=== PATIENT | male | born 1950 | race Caucasian/White ===

== ENCOUNTER → 2022-01-16 | Outpatient (CLI) | payer MEDICARE ==
--- NOTE | 2022-01-16 13:07 | RAD ---
CT ABDOMEN+PELVIS WO History: Reason: GROSS HEMATURIA / Spl. Instructions: / History: Technique: Noncontrast examination of the abdomen and pelvis. Coronal and sagittal reconstructions we re performed. Exposure: One or more of the following individualized dose reduction techniques were utilized for thi s examination: 1. Automated exposure control 2. Adjustment of the mA and/or kV according to patient size 3. Use of iterative reconstruction technique. Comparison: None Findings: Lower chest: 5 mm right middle lobe pulmonary nodule (series 2 image 10). Lower lobe 6 mm right lower lobe pulmonary nodule (image 8). 6 mm right middle lobe pulmonary nodule (image 1). 5 mm left lower lobe pulmonary nodule pleural-based (image 8). Abdomen and pelvis: Left anterior hepatic hypodensities measures 0.9 cm and 1.3 cm. The spleen, adren al glands, pancreas and gallbladder are unremarkable. No biliary ductal dilatation. No renal calculus. No hydronephrosis. No ureteral or urinary bladder calculus. Irregular right financial reporting advisor ior urinary bladder mass measures 4.8 x 2.9 cm. The mass is overall heterogeneous with hypodense and hyperdense components Mild distention of the urinary bladder. Mild prostamegaly measures 4.6 x 4.7 cm . Normal appendix. No evidence of bowel obstruction. No pathologic lymphadenopathy. No ascites. Small f at-containing right inguinal hernia. Bones: Chronic moderate multilevel lumbar spondylosis. L3 compression fracture with retropulsion. Impression: 1. Irregular heterogeneous right posterior urinary bladder mass, concerning for malignancy with amy cent hemorrhage. Recommend direct visualization and biopsy. 2. Mild urinary bladder distention. 3. Several indeterminate pulmonary nodules. Recommend attention on follow-up examinations or 3 month follow-up. 4. Small left hepatic hypodensities, may represent cysts although indeterminate. Recommend attention on follow-up. Electronically signed by: Shaquille Blanchard DO (01/16/2022 1:05 PM) [id number]
== END ==
LOC: CT 11:08
PROVIDERS: ATTEND Family Medicine
DX: R31.0 Gross hematuria (principal); K40.90 Unilateral inguinal hernia, without obstruction or gangrene, not specified as recurrent; N32.89 Other specified disorders of bladder; R91.8 Other nonspecific abnormal finding of lung field; M47.816 Spondylosis without myelopathy or radiculopathy, lumbar region
CPT/HCPCS: 74176

== ENCOUNTER 2022-01-20 18:42 | Emergency (ER) | payer MEDICARE ==
[~2022-01-20] VITALS: Ht 195.6 cm; Wt 112.1 kg
--- NOTE | 2022-01-20 18:53 | PHYS DOC ---
Adult General [facility] HPI Patient is a 71-year-old male who presents with a chief complaint of catheter malfunction. States that he went to see his primary care physician last week because he had blood in his urine. States he was sent to and went to the emergency department, then saw the urologist and had a Vanessa catheter placed as he does have an unknown mass in his bladder. States he has an appointment in 2 days with the urologist at . States that he was making urine up until this morning. States he has had lots of fluid and feels like he has to urinate but nothing is coming out of his Vanessa catheter. Denies any headache, lightheadedness, chest pain or shortness of breath, abdominal pain, nausea, vomiting. Denies any diarrhea or blood in the stool. States he otherwise feels well except having feelings that he needs to urinate. Review of Systems Review of Systems Review of systems otherwise unremarkable except noted in HPI Physical Exam Physical Exam Constitutional: Well developed, well nourished, no acute distress, non-toxic appearance. [] HENT: Normocephalic, atraumatic, bilateral external ears normal, oropharynx moist, no oral exudates, nose normal. [] Eyes: PERRLA, EOMI, conjunctiva normal, no discharge. [] Neck: Normal range of motion, no tenderness, supple, no stridor. [] Cardiovascular:Heart rate regular rhythm, no murmur [] Lungs & Thorax: Bilateral breath sounds clear to auscultation [] Abdomen: Bowel sounds normal, soft, no tenderness, no masses, no pulsatile masses. : Normal circumcised penis with no signs of trauma, Vanessa catheter in place and not draining. Ultrasound of bladder shows urine. [] Skin: Warm, dry, no erythema, no rash. [] Back: No tenderness, no CVA tenderness. [] Extremities: No tenderness, no cyanosis, no clubbing, ROM intact, no edema. [] Neurologic: Alert and oriented X 3, normal motor function, normal sensory function, no focal deficits noted. [] Psychologic: Affect normal, judgement normal, mood normal. [] EKG EKG [] Radiology/Procedures Radiology/Procedures [] Heart Score C/O Chest Pain: No Risk Factors: Risk Factors: DM, Current or recent (<one month) smoker, HTN, HLP, family history of CAD, obesity. Risk Scores: Risk Factors: DM, Current or recent (<one month) smoker, HTN, HLP, family history of CAD, obesity. Course & Med Decision Making Course & Med Decision Making Patient is a 71-year-old male who presents with a chief complaint of Vanessa catheter malfunction Vital signs nonconcerning. Physical exam noted above. Urine in the bladder shown on ultrasound. Vanessa catheter replaced with urine output of about 1000 mL with obvious dark blood. Patient stated he feels much better after urinating. Vanessa catheter continues to drain without issue. Discussed findings with family. Gave strict return precautions to the ED. Advised to keep his appointment with his urologist day after tomorrow. Advised to follow-up with primary care physician as well. Patient grateful, verbalized understanding and agreed with plan of discharge. [] Dragon Disclaimer Dragon Disclaimer This electronic medical record was generated, in whole or in part, using a voice recognition dictation system. Departure Departure: Impression: Primary Impression: Malfunction of indwelling urinary catheter Disposition: HOME / SELF CARE / HOMELESS Condition: STABLE Referrals: ALTA CM MD (PCP) Patient Instructions: Vanessa Catheter Care, Adult Additional Instructions: You for coming into the emergency department tonight and allowing us to take care of you. Please read the attached information carefully go over things we discussed. Please be sure to drink plenty of fluids to promote good urine output. Please keep your appointment in 2 days with the urologist at . Please come back to the emergency department immediately with any of the new or concerning symptoms as we discussed. VIKRAM GROSSMAN MD January 20, 2022 18:53
[2022-01-20] MEDS ORDERED: LIDOCAINE 2% JELLY 6ML IN APPLICATOR. ONE (19:11)
[2022-01-20] MEDS ORDERED: CEPHALEXIN 250 MG CAPSULE PO ONE (19:45)
[2022-01-20 20:02] LABS: CLARITY,URINE TURBID; COLOR,URINE BROWN
[2022-01-20 20:03] LABS: BACTERIA,URINE 0 /HPF (0-FEW); RBC,URINE TNTC /HPF (0-2); WBC,URINE OCC /HPF (0-4)
== END 2022-01-20 20:30 | disposition home or self-care (01) ==
LOC: ER 18:42
DX: T83.091A Other mechanical complication of indwelling urethral catheter, initial encounter (principal); R31.9 Hematuria, unspecified
CPT/HCPCS: 51702; 81001; 99284

== ENCOUNTER 2022-01-21 06:15 | Emergency (ER) | payer MEDICARE, OTHER ==
[~2022-01-21] VITALS: Ht 195.6 cm; Wt 112.1 kg
--- NOTE | 2022-01-21 06:29 | PHYS DOC ---
Past History Additional Past Medical Histor: mass on bladder Past Surgical History: Tonsillectomy General Adult HPI: HPI: Patient is a 71-year-old male here with report of concern for decreased urine output in his Vanessa leg bag. He was seen here last night, less than 12 hours ago for urinary retention. A few days prior to that he was seen in the ER at [facility], he had a Vanessa placed, the Vanessa quit draining so he presented to this ER, his Vanessa was changed without difficulty, about 1200 mL of urine output was returned. He then went home, ate and drank without difficulty, emptied his leg bag which was over half full before he went to bed last night around 11:00. When he woke this morning he had very little urine coming from his Vanessa. He denies any abdominal pain or pelvic pain. He denies constipation or diarrhea. He denies nausea or vomiting. Denies fevers or chills. He reports little discomfort at his urethra, but denies any pelvic pain or abdominal fullness. Last week, his primary care physician ordered an outpatient CT, which demonstrated concerning for bladder malignancy. He is supposed to receive a call from urology at this week. He has not seen a urologist for this particular problem as of yet. Review of Systems: Review of Systems: Constitutional: Denies fever or chills Respiratory: Denies cough or shortness of breath Cardiovascular: Denies chest pain or edema GI: Denies abdominal pain, nausea, vomiting, or diarrhea : Urinary retention. Gross hematuria. Denies pelvic pain Musculoskeletal: Denies back pain or joint pain Integument: Denies rash Neurologic: Denies headache, focal weakness or sensory changes s Psychiatric: Denies depression or anxiety Allergies: Allergies: Allergies Coded Allergies Type Severity Reaction Last Updated Verified Sulfa (Sulfonamide Antibiotics) Allergy Intermediate 01/20/22 Yes Physical Exam: PE: Constitutional: Well developed, well nourished, no acute distress, non-toxic appearance. [] HENT: Normocephalic, atraumatic Eyes: Sclera anicteric, conjunctive are normal Neck: Normal range of motion, no tenderness, supple, no stridor. [] Cardiovascular:Heart rate regular rhythm, was 2 radial and +2 posterior tibial pulses bilaterally Lungs & Thorax: Bilateral breath sounds clear to auscultation [] Abdomen: Abdomen is soft, nondistended, nontender to palpation. No palpable masses organomegaly. No CVA tenderness. Skin: Warm, dry, no erythema, no rash. [] Back: No tenderness, no CVA tenderness. [] Extremities: No tenderness, no cyanosis, no clubbing, ROM intact, no edema. [] Neurologic: Alert and oriented X 3, normal motor function, normal sensory function, no focal deficits noted. [] Psychologic: Affect normal, judgement normal, mood normal. [] EKG: EKG: [] Radiology/Procedures: Radiology/Procedures: [] Heart Score: C/O Chest Pain: No Risk Factors: Risk Factors: DM, Current or recent (<one month) smoker, HTN, HLP, family history of CAD, obesity. Risk Scores: Score 0 - 3: 2.5% MACE over next 6 weeks - Discharge Home Score 4 - 6: 20.3% MACE over next 6 weeks - Admit for Clinical Observation Score 7 - 10: 72.7% MACE over next 6 weeks - Early Invasive Strategies Course & Med Decision Making: Course & Med Decision Making The nursing staff was able to irrigate the patient's Avnessa catheter, return of about 750 mL of bloody urine. The patient reports feeling much better. His catheter appears to be functioning well at this time. I suggested that the staff give him some home supplies for irrigation. I do not feel that replacing his Vanessa catheter would be of any significant use at this time, and I am going to defer further catheter care or troubleshooting to the urology service at [facility]. He is hopeful to hear from them today. He has been given a prescription for Keflex from this ER yesterday. I explained that the definitive diagnosis for catheter associated infections relies on the urine culture, which is pending at this time. There is currently no indication for laboratory exams, imaging, transfer or admission at this time. Home care instructions are given, return precautions are given. I have had multiple encounters with this patient, I have answered multiple questions, multiple times, the patient is interested in having a prolonged discussion about cancer care here in the ER, and I very politely but firmly explained that that is beyond the scope of my practice as an emergency physician, while empathized with his anxiety and discomfort over having this recent diagnosis and concern over him having a malignancy, I am going to defer further discussion and details of care to the appropriate specialist, i.e. urology and/or oncology services, at . I did give him a brief introduction to mom what most likely will happen initially, but I kindly explained that I am unable to delve into more detailed information about what might or might not be done to further evaluate his condition. Rojas Disclaimer: Dragon Disclaimer: This electronic medical record was generated, in whole or in part, using a voice recognition dictation system. Departure Departure: Impression: Primary Impression: Vanessa catheter problem Qualified Codes: T83.9XXD - Unspecified complication of genitourinary prosthetic device, implant and graft, subsequent encounter Additional Impressions: Urinary retention Gross hematuria Bladder mass Disposition: HOME / SELF CARE / HOMELESS Condition: STABLE Referrals: ALTA CM MD (PCP) Patient Instructions: Vanessa Catheter Care, Adult, Urinary Retention, Acute, Male Additional Instructions: Return to the ER for severe abdominal pain, vomiting, temperature 100.4 or higher or for any other concerns. Please contact [facility] today to arrange for close follow-up. If is not able to accommodate you being seen expeditiously, you may wish to contact [facility] [place] ([facility]), which have multiple clinics and staff multiple facilities across the [facility] area. DEANDRA NATARAJAN DO January 21, 2022 06:29
== END 2022-01-21 08:25 | disposition home or self-care (01) ==
LOC: ER 06:15
DX: T83.9XXD Unspecified complication of genitourinary prosthetic device, implant and graft, subsequent encounter (principal); R33.9 Retention of urine, unspecified; R31.9 Hematuria, unspecified; N32.89 Other specified disorders of bladder; Z88.2 Allergy status to sulfonamides
CPT/HCPCS: 99281